=== PATIENT | female | born 1980 | race Caucasian/White ===

== ENCOUNTER → 2017-04-14 | Outpatient (CLI) | payer BC | END | disposition home or self-care (01) | LOC: C.PAPS 13:41 | PROVIDERS: ATTEND Obstetrics & Gynecology | DX: O09.511 Supervision of elderly primigravida, first trimester (principal) ==

== ENCOUNTER → 2017-04-14 | Outpatient (CLI) | payer BC ==
[2017-04-14 14:36] LABS: URINE APPEARANCE CLEAR (CLEAR); URINE BILIRUBIN NEG (NEG); URINE COLOR DK YELLOW; URINE NITRITE NEG (NEG); URINE SPECIFIC GRAVITY 1.028 (1.000-1.030); UROBILINOGEN NEG (NEG)
[2017-04-14 14:40] LABS: MANUAL MICROSCOPIC REQUIRED? NO; REVIEW REQ? NO
[2017-04-17 02:55] LABS: CHLAMYDIA TRACH RNA*** NOT DETECTED (NOT DETECTED); GC (NEIS GONORRHOEAE)RNA** NOT DETECTED (NOT DETECTED)
== END | disposition home or self-care (01) ==
LOC: C.LABSPEC 14:08
PROVIDERS: ATTEND Obstetrics & Gynecology
DX: Z33.1 Pregnant state, incidental (principal)

== ENCOUNTER → 2017-11-17 | Outpatient (CLI) | payer OTHER ==
[~2017-11-17] MED LIST: HMLI7525 SC; INSPMPHMLG SC; INSPMPRGR SC; PRENTAB26 PO
[2017-11-17 16:41] LABS: HEMATOCRIT 36.6 % (37-47); HEMOGLOBIN 12.1 g/dL (12.0-16.0); MEAN CELL VOLUME 82.2 fL (80-100); MEAN CORPUSCULAR HEMOGLOBIN 27.2 pg (25-34); MEAN CORPUSCULAR HGB CONC 33.1 g/dl (32-36); PLATELET COUNT 308 K/uL (130-400); RED CELL DISTRIBUTION WIDTH CV 15.3 % (11.5-14.5); RED CELL DISTRIBUTION WIDTH SD 45.7 fL (36.4-46.3); WHITE BLOOD COUNT 9.02 K/uL (4.8-10.8)
[2017-11-17 17:10] LABS: ALBUMIN 2.5 gm/dl (3.4-5.0); ALT/SGPT 12 U/L (12-78); AST/SGOT 13 U/L (15-37); BLOOD UREA NITROGEN 12 mg/dl (7-18); CALCIUM 8.9 mg/dl (8.5-10.1); CARBON DIOXIDE 24 mmol/L (21-32); GLUCOSE 64 mg/dl (70-99); POTASSIUM 3.8 mmol/L (3.5-5.1); SODIUM 137 mmol/L (136-145)
[2017-11-17 17:12] LABS: ALKALINE PHOSPHATASE 191 U/L (45-117); TOTAL PROTEIN 6.9 gm/dl (6.4-8.2)
== END | disposition home or self-care (01) ==
LOC: C.LAB1850 15:49
PROVIDERS: ATTEND Obstetrics & Gynecology
DX: O16.3 Unspecified maternal hypertension, third trimester (principal)

== ENCOUNTER 2017-11-19 19:53 | Outpatient (CLI) | payer OTHER ==
[~2017-11-19] VITALS: Ht 165.1 cm; Wt 114.1 kg
[2017-11-19 20:00] VITALS: Ht 165.1 cm; Wt 114.1 kg
[2017-11-19] MEDS ORDERED: HMLI7525 SC (20:12)
[2017-11-19] MEDS ORDERED: INSPMPRGR SC (20:12)
[2017-11-19] MEDS ORDERED: PRENTAB26 PO (20:12)
[2017-11-20] MEDS ORDERED: HMLI7525 SC (09:38)
[2017-11-20] MEDS ORDERED: INSPMPHMLG SC (09:41)
== END 2017-11-19 20:35 | disposition home or self-care (01) ==
LOC: C.OPB 19:53 → C.LD 19:53 → C.OPB 20:35
PROVIDERS: ATTEND Obstetrics & Gynecology
DX: O34.43 Maternal care for other abnormalities of cervix, third trimester (principal); Z3A.00 Weeks of gestation of pregnancy not specified

== ENCOUNTER 2017-11-20 07:41 | Inpatient (IN) | payer OTHER ==
[~2017-11-20] VITALS: Ht 165.1 cm; Wt 114.1 kg
[~2017-11-20 07:41] MED LIST changes: -INSPMPHMLG SC
[2017-11-20] MEDS ORDERED: LACTATED RINGER'S 1000ML 500 ML IV PRN ×2 (08:43→19:20)
[2017-11-20] MEDS ORDERED: LACTATED RINGER'S 1000ML 1,000 ML IV PRN (08:43)
[2017-11-20] MEDS ORDERED: PENICILLIN G POTASSIUM IV 6 MU in DEXTROSE 5% 250ML 250 ML IV ONE (09:15)
[2017-11-20 09:16] LABS: HEMATOCRIT 35.8 % (37-47); MEAN CELL VOLUME 82.1 fL (80-100); MEAN CORPUSCULAR HEMOGLOBIN 27.5 pg (25-34); MEAN CORPUSCULAR HGB CONC 33.5 g/dl (32-36); MEAN PLATELET VOLUME 9.8 fL (7.4-10.4); PLATELET COUNT 299 K/uL (130-400); RED CELL DISTRIBUTION WIDTH CV 15.4 % (11.5-14.5); RED CELL DISTRIBUTION WIDTH SD 45.6 fL (36.4-46.3); WHITE BLOOD COUNT 11.88 K/uL (4.8-10.8)
[2017-11-20] MEDS: OXYTOCIN 30 UNITS/500ML NSS IV PRN (09:21)
[2017-11-20] MEDS: LACTATED RINGER'S 1000ML 1,000 ML IV SCH ×3 (09:28→21:42)
[2017-11-20 09:37] VITALS: Ht 165.1 cm; Wt 114.1 kg
[2017-11-20] MEDS ORDERED: HMLI7525 SC (09:38)
[2017-11-20] MEDS ORDERED: INSPMPHMLG SC (09:41)
[2017-11-20] MEDS: PENICILLIN G POTASSIUM IV 3 MU in DEXTROSE 5% 100ML 100 ML IV PRN ×3 (13:34→21:41)
[2017-11-20] MEDS ORDERED: BUPIVACAINE 0.25% 30 ML VIAL ONE (16:15)
[2017-11-20] MEDS ORDERED: EpHEDrine SULFATE INJ 50 MG/ML AMP ONE (16:15)
[2017-11-20] MEDS ORDERED: FENTANYL 2MCG/ML ROPIV 1.25MG/ML 100ML BAG EPI ONE (16:16)
[2017-11-20] MEDS ORDERED: FENTANYL CITRATE INJ 50 MCG/1 ML 2 ML VIAL ONE (16:16)
[2017-11-20 18:08] LABS: ALBUMIN 2.5 gm/dl (3.4-5.0); CALCIUM 8.8 mg/dl (8.5-10.1); CREATININE 0.62 mg/dl (0.60-1.20); POTASSIUM 3.5 mmol/L (3.5-5.1)
[2017-11-20 18:11] LABS: TOTAL PROTEIN 6.8 gm/dl (6.4-8.2)
[2017-11-20] MEDS ORDERED: NALOXONE HCL INJ 1 MG in SODIUM CHLORIDE 0.9% 1000ML 1,000 ML IV PRN (19:20)
[2017-11-20] MEDS ORDERED: NALOXONE HCL INJ 0.4 MG/1 ML VIAL/CARP IV PRN (19:30)
[2017-11-20] MEDS ORDERED: EpHEDrine SULFATE INJ 50 MG/ML AMP IV PRN (19:30)
[2017-11-20] MEDS ORDERED: NALBUPHINE HCL INJ 10 MG/ML AMP IV PRN (19:30)
[2017-11-20] MEDS ORDERED: ONDANSETRON INJ 2 MG/ML 2 ML VIAL IV PRN (19:30)
[2017-11-20] MEDS ORDERED: DiphenhydrAMINE HCL 50 MG/ML VIAL IV PRN (19:30)
[2017-11-21] VITALS (9 sets, daily range): BP systolic 100–147; BP diastolic 57–96; PULSE 86–108; TEMP 36.4–36.9; O2SAT 96–100
[2017-11-21] MEDS: FENTANYL 2MCG/ML ROPIV 1.25MG/ML 100ML BAG EPI PRN ×3 (01:16→07:06)
[2017-11-21] MEDS: PENICILLIN G POTASSIUM IV 3 MU in DEXTROSE 5% 100ML 100 ML IV PRN ×2 (01:54→06:01)
[2017-11-21] MEDS ORDERED: ACETAMINOPHEN 325 MG TAB ONE (02:32)
[2017-11-21] MEDS ORDERED: ACETAMINOPHEN 325 MG TAB PO STA (02:44)
[2017-11-21 09:22] LABS: HEMATOCRIT 32.1 % (37-47); HEMOGLOBIN 10.7 g/dL (12.0-16.0); MEAN CELL VOLUME 81.9 fL (80-100); MEAN CORPUSCULAR HEMOGLOBIN 27.3 pg (25-34); MEAN PLATELET VOLUME 9.6 fL (7.4-10.4); PLATELET COUNT 245 K/uL (130-400); RED CELL DISTRIBUTION WIDTH CV 15.7 % (11.5-14.5); RED CELL DISTRIBUTION WIDTH SD 46.6 fL (36.4-46.3); WHITE BLOOD COUNT 17.57 K/uL (4.8-10.8)
[2017-11-21 09:33] LABS: MEAN CORPUSCULAR HGB CONC 33.3 g/dl (32-36)
[2017-11-21] MEDS: OXYTOCIN 30 UNITS/500ML NSS IV PRN ×2 (09:56→10:09)
[2017-11-21] MEDS ORDERED: HYDROCORTISONE ACETATE 25 MG SUPP PR PRN (10:15)
[2017-11-21] MEDS ORDERED: BENZOCAINE 20% AER SPR 82.5 GM CAN EXT PRN (10:15)
[2017-11-21] MEDS ORDERED: LANOLIN OINT EXT PRN (10:15)
[2017-11-21] MEDS ORDERED: SUPERCREAM 0.870 % 15GM JAR EXT PRN (10:15)
[2017-11-21] MEDS ORDERED: OXYTOCIN 30 UNITS/500ML NSS IV PRN (10:15)
[2017-11-21] MEDS ORDERED: OXYCODONE/ACETAMINOPHEN 5-325 TAB PO PRN (10:15)
[2017-11-21] MEDS ORDERED: ACETAMINOPHEN 325 MG TAB PO PRN (10:15)
[2017-11-21] MEDS ORDERED: OXYTOCIN INJ 10 UNITS/ML VIAL IM ONE (10:15)
--- NOTE | 2017-11-21 12:47 | DELIVERY SUMMARY ---
DATE OF OPERATION: 11/21/2017 PRE-DELIVERY DIAGNOSES: 1. A 37-year-old , 40 weeks 1 day. 2. GDMA2. 3. Group B strep positive. 4. Gestational hypertension. POST-DELIVERY DIAGNOSES: Same plus hemorrhage due to multiple vaginal lacerations. PROCEDURES: Spontaneous vaginal delivery and repair of second degree perineal laceration and suburethral laceration and left vaginal wall laceration and multiple superficial lacerations. DESCRIPTION OF DELIVERY: The patient was induced due to gestational diabetes on insulin and had labored overnight with the aid of Pitocin. She progressed to complete with an epidural anesthesia and began to push. She pushed for approximately 1 hour and vaginally delivered a viable male from the cephalic presentation. The head delivered in the left occiput anterior position with a compound hand that delivered at the same time as the head. The compound hand was the left arm, the posterior arm. The entire left arm was then delivered and then the anterior shoulder was delivered followed by the body. The baby was placed on the mother's abdomen. The cord was doubly clamped and cut. Spontaneous cry was heard. Cord segment was sent for cord gasses. Placenta was then delivered spontaneously intact with a 3-vessel cord. The uterus and vagina were swept of all clots and debris. Pitocin was given and the uterus became firm. The uterus was firm throughout the extensive repair. The cervix, vagina, and perineum were inspected and a second-degree perineal laceration was noted as well as a suburethral laceration and a left vaginal laceration. In addition to these, there were multiple small superficial lacerations, all of which were actively bleeding. First, the perineal laceration was repaired in the standard fashion because there were active pumping arteries bleeding. Rectal exam revealed no entry of the laceration to the rectum as well as an intact anal sphincter. Two wfubqf-gl-xgnun stitches were used to reapproximate the tissue just around the anal sphincter to give this area a little bit more support and the remaining repair was performed in standard fashion. Attention was turned to the urethra. A Moralez catheter was placed to ensure no entry of sutures into the urethra. Multiple bzqbyw-rl-rtipu stitches were placed in the suburethral area to reapproximate the tissue. This was difficult throughout to repair as each time a stitch was placed, the tissue shredded and all edges continued bleeding. During this repair, I asked for a stat CBC to be drawn to assess the patient's current hemodynamic status. Her vitals were stable. The left vaginal wall tear was reapproximated with multiple bbluah-lf-kztws sutures of 3-0 Vicryl. At this time, there were many small superficial lacerations throughout the vagina that were all bleeding. After thorough examination using 2 assistants with retractors to get good visualization of the entire cervix and vagina, I did not see any additional pumping bleeding; however, multiple spots of oozing blood from both the suburethral repair and the left vaginal laceration. More tvohce-lh-kdmpf sutures were used at both of these locations throughout and the urine in the Moralez catheter drainage tube was cleared. All stitches were far from the location of the Moralez catheter. Additional jddrib-vd-qtxjw sutures of 4-0 Vicryl were used in the vagina at every location, where I found an actively bleeding mucosal edge. Sharron hemostatic agent was used in an attempt to get these edges to stop oozing. Because of the patient's drop in hemoglobin from 12 to 10 from admission to the time of delivery and estimated blood loss of approximately 500 at the time of delivery and initial repair plus weighing of Latex sponges approximately 450 mL of blood loss, totaling approximately 1000 mL of blood loss, I elected to transfuse the patient with 1 unit of packed red cells and 1 unit of FFP because of the multiple areas of oozing bleeding in the vagina. After application of Sharron and pressure applied to the vagina with my fingers inside the Latex sponge, the entire vagina appeared hemostatic. At this time, I was notified that the packed red cells were on the way and the FFP was being defrosted by the blood bank. The patient was awake and taking throughout and vitals were normal and the patient appeared hemodynamically stable. Her bleeding at this time was stopped. Total estimated blood loss approximately 1000 mL throughout the delivery and repair. FINDINGS: Viable male . Apgars 8 and 9. Weight pending. Please nursery records. The patient and the baby recovered in stable and good condition in the room. I attest to the content of the Intraoperative Record and any orders documented therein. Any exception s are noted below.
[2017-11-21] MEDS ORDERED: DiphenhydrAMINE HCL 50 MG/ML VIAL IV STA (12:49)
[2017-11-21] MEDS ORDERED: DiphenhydrAMINE HCL 50 MG/ML VIAL ONE (12:51)
[2017-11-21 14:12] LABS: HEMATOCRIT 30.5 % (37-47); HEMOGLOBIN 10.2 g/dL (12.0-16.0); MEAN CELL VOLUME 81.8 fL (80-100); MEAN CORPUSCULAR HEMOGLOBIN 27.3 pg (25-34); MEAN CORPUSCULAR HGB CONC 33.4 g/dl (32-36); MEAN PLATELET VOLUME 9.8 fL (7.4-10.4); PLATELET COUNT 237 K/uL (130-400); RED CELL DISTRIBUTION WIDTH CV 15.4 % (11.5-14.5); RED CELL DISTRIBUTION WIDTH SD 45.2 fL (36.4-46.3); WHITE BLOOD COUNT 19.52 K/uL (4.8-10.8)
[2017-11-21] MEDS: IBUPROFEN 600 MG TAB PO PRN ×2 (14:26→22:38)
[2017-11-21 15:03] LABS: PTT PATIENT 29.1 SECONDS (21.0-31.0)
--- NOTE | 2017-11-21 16:37 | Anesthesia Procedure Note ---
Anesthesia Epidural Removal Nt Date & Time Nov 21, 2017 at 16:37 Vital Signs Pain Intensity: 1.0 Vital Signs Past 12 Hours Date Time Temp Pulse Resp B/P (MAP) Pulse Ox O2 Delivery O2 Flow Rate FiO2 11/21/17 12:45 36.7 93 20 147/94 100 11/21/17 12:30 36.6 87 20 130/73 11/21/17 12:15 36.4 93 18 127/71 11/21/17 11:30 36.5 95 20 140/87 11/21/17 11:00 36.6 103 20 140/69 11/21/17 10:43 36.8 108 20 108/57 Notes Mental Status: alert / awake / arousable, participated in evaluation Nausea / Vomiting: adequately controlled Pain: adequately controlled Airway Patency, RR, SpO2: stable & adequate BP & HR: stable & adequate Hydration State: stable & adequate Neuraxial Anesthesia: was administered, sensory block is resolving Anesthetic Complications: no major complications apparent, pt satisfied with anesthetic care Epidural: removed without complications, with tip intact
[2017-11-21 20:25] LABS: HEMATOCRIT 25.4 % (37-47); HEMOGLOBIN 8.4 g/dL (12.0-16.0)
[2017-11-21] MEDS: DOCUSATE SODIUM 100 MG CAP PO SCH (20:35)
[2017-11-22 03:00] VITALS: BP 122/78; PULSE 86; TEMP 36.6; O2SAT 97
[2017-11-22] MEDS: IBUPROFEN 600 MG TAB PO PRN ×4 (03:17→21:32)
[2017-11-22 06:34] LABS: HEMATOCRIT 25.5 % (37-47); HEMOGLOBIN 8.4 g/dL (12.0-16.0)
--- NOTE | 2017-11-22 07:34 | Progress Note ---
Subjective Nov 22, 2017. Subjective conversation w/ patient, physical exam Ambulation: ambulating normally Voiding: christie catheter in place (to be removed this am) Passing Gas: Yes Diet Tolerance: Regular Diet Lochia: Small Feeding Type: Breast Feeding Pain: well controlled Comment: seen and assessed at bedside; no acute events overnight Review of Systems Constitutional: No fever, No chills Respiratory: No cough, No shortness of breath Cardiac: + edema, No chest pain Abdomen: No nausea, No vomiting no headaches or calf pain Objective Vital Signs Date Time Temp Pulse Resp B/P (MAP) Pulse Ox O2 Delivery O2 Flow Rate FiO2 11/22/17 03:00 36.6 86 20 122/78 (93) 97 Room Air 11/21/17 23:30 Room Air 11/21/17 23:30 36.9 100 20 111/75 (87) Room Air 11/21/17 20:20 36.7 91 18 100/66 (77) 96 Room Air 11/21/17 17:15 36.6 86 18 130/96 (107) 97 Room Air 11/21/17 17:15 Room Air 11/21/17 12:45 36.7 93 20 147/94 100 11/21/17 12:30 36.6 87 20 130/73 11/21/17 12:15 36.4 93 18 127/71 11/21/17 11:30 36.5 95 20 140/87 11/21/17 11:00 36.6 103 20 140/69 11/21/17 10:43 36.8 108 20 108/57 Physical Exam General Appearance: WELL-APPEARING, WD/WN, NO APPARENT DISTRESS Respiratory/Chest: chest non-tender, lungs clear, normal breath sounds Cardiovascular: regular rate, rhythm, no murmur Abdomen: normal bowel sounds, non tender, soft Fundus: Firm, Non-Tender, Relation to Umbilicus (3 below) Extremities: normal range of motion, non-tender, normal inspection, no calf tenderness, + pedal edema (1 plus bilaterally) Laboratory Results Last 24 Hours Test 11/21/17 07:08 11/21/17 09:14 11/21/17 13:26 11/21/17 13:56 Bedside Glucose 88 mg/dl White Blood Count 17.57 K/uL 19.52 K/uL Red Blood Count 3.92 M/uL 3.73 M/uL Hemoglobin 10.7 g/dL 10.2 g/dL Hematocrit 32.1 % 30.5 % Mean Corpuscular Volume 81.9 fL 81.8 fL Mean Corpuscular Hemoglobin 27.3 pg 27.3 pg Mean Corpuscular Hemoglobin Concent 33.3 g/dl 33.4 g/dl RDW Standard Deviation 46.6 fL 45.2 fL RDW Coefficient of Variation 15.7 % 15.4 % Platelet Count 245 K/uL 237 K/uL Mean Platelet Volume 9.6 fL 9.8 fL Urine Occult Blood 2+ Urine RBC (Auto) 0-4 /hpf Prothrombin Time 10.0 SECONDS Prothromb Time International Ratio 1.0 Activated Partial Thromboplast Time 29.1 SECONDS Partial Thromboplastin Ratio 1.1 Fibrinogen 473 mg/dl Fibrin Degradation Products 10-40 mcg/ml Test 11/21/17 20:07 11/22/17 06:18 Hemoglobin 8.4 g/dL 8.4 g/dL Hematocrit 25.4 % 25.5 % Medications Current Inpatient Medications Medications (Trade) Dose Ordered Sig/Eirc Route Start Time Stop Time Status Last Admin Dose Admin Penicillin G Potassium 3 mu/ Dextrose 106 ml @ 100 mls/hr Q4H PRN IV 11/20/17 08:45 11/22/17 08:44 11/21/17 06:01 100 MLS/HR Lactated Ringer's 1,000 ml @ 125 mls/hr Q8H IV 11/20/17 08:43 11/22/17 08:42 11/20/17 21:42 125 MLS/HR Lactated Ringer's 1,000 ml @ 999 mls/hr Q1H1M PRN IV 11/20/17 08:43 12/20/17 08:42 11/20/17 16:12 999 MLS/HR Oxytocin (Pitocin IV) 30 units UD PRN IV 11/20/17 08:45 12/20/17 08:44 11/21/17 10:09 30 UNITS Lactated Ringer's 500 ml @ 999 mls/hr Q31M PRN IV 11/20/17 08:43 12/20/17 08:42 Oxytocin (Pitocin IV) 30 units UD PRN IV 11/21/17 10:15 12/21/17 10:14 Benzocaine (Dermoplast Aero Spr) 1 appln PRN PRN EXT 11/21/17 10:15 12/21/17 10:14 11/21/17 22:35 82.5 APPLN Cocaine HCl (Supercream 0.870% Cr) BID PRN EXT 11/21/17 10:15 12/05/17 10:14 11/21/17 23:24 15 GM Hydrocortisone Acetate (Anusol Hc Supp) 25 mg BID PRN IA 11/21/17 10:15 12/21/17 10:14 Lanolin (Lanolin Oint) PRN PRN EXT 11/21/17 10:15 12/21/17 10:14 Prenat Multivit/ Supervisor Paint Roller Covers/Iron/Folic Ac ( Vitamin Tab) 1 tab DAILY PO 11/22/17 08:00 12/22/17 07:59 Ibuprofen (Motrin Tab) 600 mg Q4H PRN PO 11/21/17 10:15 12/21/17 10:14 11/22/17 03:17 600 MG Acetaminophen (Tylenol Tab) 650 mg Q6H PRN PO 11/21/17 10:15 12/21/17 10:14 Oxycodone/ Acetaminophen (Percocet 5-325mg Tab) 1 tab Q4H PRN PO 11/21/17 10:15 12/05/17 10:14 Docusate Sodium (coLACE CAP) 100 mg BID PO 11/21/17 20:00 12/21/17 19:59 11/21/17 20:35 100 MG Ferrous Sulfate (Feosol Tab) 325 mg DAILY PO 11/22/17 08:00 12/22/17 07:59 Assessment and Plan Post- Day#: 1 Continue Routine Care: 37yo F PPD 1 s/p Pt doing well clinically Continue routine care Encourage ambulation and breast feeding, first time mom education on Home tomorrow Resident Physician Supervision Note: I was present with Dr. Hurt during the history and exam. I discussed the case with the resident and agree with the findings and plan as documented in the note. Any exceptions or clarifications are listed here: PPD#1 doing well. Patient had hemorrhage due to multiple bleeding lacerations at time of delivery yesterday. Rec'd 1u PRBC, 1u FFP after delivery. After infusion of FFP, patient developed hives around neck/face - no difficulty breathing. Gave IV benadryl, symptoms resolved and have not returned. Minimal vaginal bleeding at this time. Hgb stable at 8.4. (Both yesterday evening and this morning). Vitals stable, feeling well. Documented By: Jacque Norris Resident Tracking Resident Involvement: Resident Care Provided Care Provided: OB Delivery
[2017-11-22 07:36] VITALS: BP 134/86; PULSE 107; TEMP 36.6
--- NOTE | 2017-11-22 07:45 | Discharge Instructions ---
Discharge Instructions Date of Service Nov 22, 2017. Admission Reason for Admission: Induction Discharge Discharge Diagnosis / Problem: s/p Discharge Goals Goal(s): Routine recovery after delivery Medications Continue Dispensed Medications: supercream, dermaplast, tucks, lansinoh Activity Recommendations Activity Limitations: per Instructions/Follow-up section . Instructions / Follow-Up Instructions / Follow-Up ACTIVITY RECOMMENDATIONS: * Gradual return to full activity over the next 2-3 weeks. * No lifting - nothing heavier than baby over the next 2-3 weeks. * Do not engage in vigorous exercise, sexual activity or sports until cleared by your physician. * Do not drive or operate any motorized equipment until cleared by your physician. * You may shower/bathe daily. MEDICATIONS: For discomfort or pain, you may use Acetaminophen (Tylenol), Ibuprofen (Advil), or Naproxen (Aleve) following the package directions. For constipation you may use Colace following the package directions. BREAST CARE: If you are not breast feeding: * Wear a supportive bra 24 hours a day for one to two weeks. * Avoid stimulating your breasts and nipples as much as possible during the first few weeks after delivery. * When taking a shower, have the warm water hit your back, not breasts. * When your breasts feel full, apply ice packs. Usually three to four times a day helps ease the discomfort. * Take a mild pain medication (Tylenol / Motrin) when you are uncomfortable. If breast feeding: * Use breast milk to lubricate nipples. Lansinoh cream may be used for sore nipples. You do not need to remove cream prior to breast feeding. If using a different brand of cream, check the label for directions regarding removal of cream prior to nursing. * Wear a supportive bra. * If having problems with breasts or breast feeding, call a databases computer consultant or your health care provider. EPISIOTOMY CARE: After delivery, if you have an episiotomy (stitches), the following steps will ease discomfort and aid healing. * For the first 24 hours after delivery, place ice packs next to your episiotomy to help reduce swelling. * After the first 24 hour-period, sitz baths, either portable or in the tub, are suggested. A shower with a shower arm sprayed over the episiotomy may be comforting. * Emilie care should be done after each voiding and bowel movement. Squirt warm water from a plastic bottle over the perineum (region of the body between the anus and urinary opening) and pat dry. * Use Dermoplast to ease discomfort. Shake container. [place] directly over the episiotomy. Place a Tucks on a clean sanitary pad next to your episiotomy. SPECIAL CARE INSTRUCTIONS: When you are discharged from the hospital, it is important for you to follow the instructions listed below: * During the first week at home, you should be able to care for yourself and your baby. In addition, the usual light household activities are encouraged. * Limit your activities to the way you feel. Do not try to clean the house or move furniture. Be sensible. * If you actively engage in sports and have done so up until the time of your delivery, you may resume these activities as soon as you feel able. This may take up to one month or even longer. Use good judgment. * Continue to take your vitamins for at least six weeks after the of your baby. * Your diet need not be limited unless you were on a special diet before your delivery. Breast-feeding mothers need around 2500 calories per day and at least 64-80 ounces of fluid per day (8 to 10 glasses). * You should eat foods from the four major food groups. Crash diets or fad diets are to be avoided. Eating lean meats, fresh fruits and vegetables, low-fat dairy products, high fiber foods and a regular exercise program, will help you get back to your pre- weight without putting your health at risk. * Constipation is sometimes a problem after delivery. Take a mild laxative as needed. If breast feeding, Milk of Magnesia is acceptable to use. You may use a suppository or Fleets enema if no episiotomy. * A daily shower or tub bath is suggested. Be sure to thoroughly and gently dry the perineum. * A bloody vaginal discharge will usually continue until around four weeks post . A small amount of bleeding may continue for as long as six weeks. Vaginal discharge changes from the bright red bleeding after delivery to pink then brownish and finally yellowish-pink before becoming white and disappearing. * Bleeding may increase with activity. Your first period may come in 4-8 weeks. If you are breast feeding, your period may be delayed even longer. * [place] (sex) can begin whenever both you and your partner feel comfortable and do not have any form of genital infection. It is recommended that you wait at least six weeks for internal and external healing to occur. If you have questions, please talk to your health care practitioner. A condom should be used to prevent infection and . * Foreplay, gentle intercourse and lubrication is very important the first several times to prevent pain. A water-based lubricant such as K-Y jelly or Astroglide may be used. * If you have RH negative blood and your baby is RH positive, you will receive RHOGAM by injection prior to discharge. The nurse will give you a card to keep with you that has the date and place that you received RHOGAM after delivery. * During your care, you had a Rubella screen done to check for the presence of rubella antibodies in your blood. If your test was negative, you will receive a Rubella vaccine prior to discharge. This vaccine may cause a fever, soreness at the injection site and flu-like symptoms. If these symptoms persist, notify your health care practitioner. is not advised for one month after a Rubella vaccine. * Verbalizes understanding of car seat law as reviewed with patient nursing. * Car Seat hand-out given and reviewed with patient by nursing. * Shaken baby information reviewed with patient by nursing. Call you doctor if: * Heavy bleeding (saturating several pads an hour) or passing clots the size of your fist. * A fever >101 degrees F (38.3 degrees C) on two occasions four hours apart and /or chills. * Unusual pain in the pelvic or vaginal areas. * "Baby Blues" lasting longer than two weeks. If you have any questions or concerns, call your health care practitioner at . FOLLOW UP VISIT: * Please call the office at to schedule a 6 week examination. It is important you keep this appointment. It is important for you to make arrangements for either yearly or twice yearly check-ups thereafter. Current Hospital Diet Patient's current hospital diet: Regular OB Diet Discharge Diet Recommended Diet: Regular OB Diet Pending Studies Studies pending at discharge: no Medical Emergencies . Who to Call and When: Medical Emergencies: If at any time you feel your situation is an emergency, please call [phone] immediately. . Non-Emergent Contact Non-Emergency issues call your: Screw Machine Adjuster Automatic . . "Provider Documentation" section prepared by Nicki Hurt. .
[2017-11-22] MEDS: DOCUSATE SODIUM 100 MG CAP PO SCH ×2 (08:41→20:10)
[2017-11-22] MEDS: PRENATAL VITAMIN TAB PO SCH (08:41)
[2017-11-22] MEDS: FERROUS SULFATE 325 MG TAB PO SCH (08:41)
[2017-11-22 11:25] VITALS: BP 130/86; PULSE 91; TEMP 36.6; O2SAT 98
[2017-11-22 15:30] VITALS: BP 142/84; PULSE 96; TEMP 36.7
[2017-11-22 23:35] VITALS: BP 132/79; PULSE 92; TEMP 36.6
[2017-11-23] MEDS: IBUPROFEN 600 MG TAB PO PRN ×2 (04:31→08:52)
[2017-11-23 06:41] LABS: HEMATOCRIT 25.2 % (37-47); HEMOGLOBIN 8.2 g/dL (12.0-16.0); MEAN CELL VOLUME 83.4 fL (80-100); MEAN CORPUSCULAR HEMOGLOBIN 27.2 pg (25-34); MEAN CORPUSCULAR HGB CONC 32.5 g/dl (32-36); MEAN PLATELET VOLUME 9.4 fL (7.4-10.4); PLATELET COUNT 274 K/uL (130-400); RED CELL DISTRIBUTION WIDTH CV 15.9 % (11.5-14.5); RED CELL DISTRIBUTION WIDTH SD 48.4 fL (36.4-46.3); WHITE BLOOD COUNT 14.47 K/uL (4.8-10.8)
--- NOTE | 2017-11-23 06:54 | Progress Note ---
Subjective Nov 23, 2017. Subjective conversation w/ patient, physical exam Ambulation: ambulating normally Voiding: no voiding problems Passing Gas: Yes Diet Tolerance: Regular Diet Lochia: Moderate Feeding Type: Breast Feeding Review of Systems Constitutional: No fever, No chills Respiratory: No cough Cardiac: No chest pain Abdomen: No nausea, No vomiting Objective Vital Signs Date Time Temp Pulse Resp B/P (MAP) Pulse Ox O2 Delivery O2 Flow Rate FiO2 11/22/17 23:35 36.6 92 18 132/79 (96) Room Air 11/22/17 23:35 Room Air 11/22/17 15:30 36.7 96 20 142/84 (103) Room Air 11/22/17 15:30 Room Air 11/22/17 11:25 36.6 91 16 130/86 (101) 98 Room Air 11/22/17 07:50 Room Air 11/22/17 07:36 36.6 107 20 134/86 (102) Room Air Physical Exam General Appearance: WELL-APPEARING, NO APPARENT DISTRESS Respiratory/Chest: no respiratory distress, no accessory muscle use Cardiovascular: no edema Abdomen: non tender, soft Fundus: Firm Extremities: no calf tenderness Laboratory Results Last 24 Hours Test 11/23/17 06:21 White Blood Count 14.47 K/uL Red Blood Count 3.02 M/uL Hemoglobin 8.2 g/dL Hematocrit 25.2 % Mean Corpuscular Volume 83.4 fL Mean Corpuscular Hemoglobin 27.2 pg Mean Corpuscular Hemoglobin Concent 32.5 g/dl RDW Standard Deviation 48.4 fL RDW Coefficient of Variation 15.9 % Platelet Count 274 K/uL Mean Platelet Volume 9.4 fL Assessment and Plan Post- Day#: 2 Continue Routine Care: D'/C instructions reviewed.
[2017-11-23 07:40] VITALS: BP 125/78; PULSE 87; TEMP 36.6; O2SAT 98
[2017-11-23] MEDS: PRENATAL VITAMIN TAB PO SCH (08:51)
[2017-11-23] MEDS: FERROUS SULFATE 325 MG TAB PO SCH (08:51)
[2017-11-23] MEDS: DOCUSATE SODIUM 100 MG CAP PO SCH (08:51)
[2017-11-23 13:30] VITALS: BP_DIAS 78; PULSE 87; TEMP 36.6
== END 2017-11-23 13:30 | disposition home or self-care (01) | DRG 774 ==
LOC: C.LD 07:41 → C.OBG 11-21 17:53
PROVIDERS: ADMIT Obstetrics & Gynecology; ATTEND Obstetrics & Gynecology
PROC: 0KQM0ZZ Repair Perineum Muscle, Open Approach (ICD-10-PCS; principal; 2017-11-21)
PROC: 10E0XZZ Delivery of Products of Conception, External Approach (ICD-10-PCS; principal; 2017-11-21)
PROC: 3E033VJ Introduction of Other Hormone into Peripheral Vein, Percutaneous Approach (ICD-10-PCS; principal; 2017-11-21)
DX: O24.424 Gestational diabetes mellitus in childbirth, insulin controlled (principal); O72.1 Other immediate postpartum hemorrhage; Z37.0 Single live birth; O32.6XX0 Maternal care for compound presentation, not applicable or unspecified; O70.1 Second degree perineal laceration during delivery; L50.0 Allergic urticaria; O99.73 Diseases of the skin and subcutaneous tissue complicating the puerperium; O13.4 Gestational [pregnancy-induced] hypertension without significant proteinuria, complicating childbirth; O9A.23 Injury, poisoning and certain other consequences of external causes complicating the puerperium; T45.8X5A Adverse effect of other primarily systemic and hematological agents, initial encounter; Z3A.40 40 weeks gestation of pregnancy; Z79.4 Long term (current) use of insulin; Z88.2 Allergy status to sulfonamides

== ENCOUNTER 2018-10-08 07:25 | Inpatient (IN) ==
[2018-10-08] MEDS ORDERED: OXYTOCIN 30 UNITS/500 ML BAG IV PRN ×3 (08:33→20:50)
[2018-10-08] MEDS ORDERED: LACTATED RINGER'S 1,000 ML IV PRN ×3 (08:33→16:27)
[2018-10-08 08:55] LABS: Hemoglobin 12.5 g/dL (12.0-16.0); Mean Corpuscular Volume 83.5 fL (80-100); Mean Platelet Volume 10.3 fL (7.4-10.4); Platelet Count 268 K/uL (130-400); RDW Coefficient of Variation 15.6 % (11.5-14.5); RDW Standard Deviation 46.9 fL (36.4-46.3); Red Blood Count 4.55 M/uL (4.2-5.4); White Blood Count 9.58 K/uL (4.8-10.8)
[2018-10-08] MEDS ORDERED: PENICILLIN G POTASSIUM 6 MU in DEXTROSE 5% 250 ML IV ONE (09:00)
[2018-10-08 09:15] LABS: Mean Corpuscular Hgb Conc 32.9 g/dL (32-36)
[2018-10-08] MEDS: LACTATED RINGER'S 1,000 ML IV SCH ×2 (09:28→16:23)
--- NOTE | 2018-10-08 09:55 | History & Physical Report ---
Date of Service October 08, 2018 Assessment & Plan (1) Gestational diabetes mellitus (GDM) requiring insulin: 38yo @ 39 12/06 here for IOL Moralez balloon placed without difficulty, will plan to start pitocin. Blood glucose checks Q2h, increase freq to Q1h when in active labor. Pen G for GBS+ History of Present Illness Chief Complaint: IOL Primary Care Provider: Karli Bradshaw PA-C 38yo @ 39 12/06 presents for IOL secondary to GDMA2. Prior delivery @ 40 1 was [id number] (10/2017). otherwise complicated by GBS+ and inconsistent lie. The baby was breech late in gestation. Today, she is feeling well without complaint. + movement. No vaginal bleeding, leaking of fluid, or contractions. Allergies Allergy/AdvReac Type Severity Reaction Status Date / Time shellfish derived Allergy Unknown HIVES Verified 11/20/17 09:47 Sulfa (Sulfonamide Allergy Unknown HIVES Verified 11/20/17 09:47 Antibiotics) Home Medications Home Medications Medication Instructions Recorded Confirmed Type Novolin N NPH U-100 Insulin 160 units SUBCUT HS 09/21/18 09/21/18 History Novolog U-100 Insulin aspart 50 ml SUBCUT WM 09/21/18 09/21/18 History acetaminophen 650 mg PO Q6 PRN 09/21/18 09/21/18 History vit [id number] 1 tab PO DAILY 09/21/18 09/21/18 History [ Vitamin] Patient History Medical History Asthma, exercise induced (~09/18/94) Surgical History Hx of breast reduction, elective (~08/17/03) Family History Father Colon cancer Social History marital status: Current Living Situation: Spouse Other Information That Helps Us Care for You: No Feels Safe at Home: Yes and No Is there a partner from a previous relationship who is making you feel unsafe now?: No Any Concerns about Your Family Situation : No Would You Like to Speak to Someone About Your Situation: No Safety Concerns: Feels Safe At This Time Smoking Status: Never smoker Hx Alcohol Use: No Hx Substance Use: No Preferred Language: [place] Communication Ability: Effective Review of Systems All systems reviewed & are unremarkable except as noted in HPI & below Physical Exam 2 Vital Signs (Past 24 Hours): Last Vital Signs Temp 36.7 C 10/08/18 07:44 Pulse 90 10/08/18 09:08 Resp 20 10/08/18 07:44 BP 134/93 10/08/18 09:08 Physical Exam: Gen: AAOx3 NAD CV: [id number] L: CTAB Abd: soft, gravid, NTTP Ext: 1+ edema SVE: /hi FHT: Cat 1, [place]co Q 2-3 Limited bedside ultrasound: Cephalic, adequate amniotic fluid, + movement and cardiac activity. Anterior placenta.
--- NOTE | 2018-10-08 12:29 | Obstetrical Progress Note ---
Date of Service October 08, 2018 Subjective Starting to feel increasing ctx. Moralez fell out. FHT Cat 1 [place] Q 1-2 SVE 4/50/not palpable. bulging membranes. Limited bedside ultrasound performed, still cephalic. Will continue pitocin to bring head down prior to AROM. Physical Exam 2 Vital Signs (Past 24 Hours): Last Vital Signs Temp 36.7 C 10/08/18 07:44 Pulse 90 10/08/18 12:07 Resp 20 10/08/18 07:44 BP 136/86 10/08/18 12:07
[2018-10-08] MEDS: PENICILLIN G POTASSIUM 3 MU in DEXTROSE 5% 100 ML IV PRN ×2 (13:39→17:39)
[2018-10-08] MEDS ORDERED: fentaNYL citrate 100 MCG/2 ML VIAL ONE (15:48)
[2018-10-08] MEDS ORDERED: BUPIVACAINE 0.25% 30 ML VIAL ONE (15:48)
[2018-10-08] MEDS ORDERED: ePHEDrine sulfate 50 MG/ML AMP ONE (15:48)
[2018-10-08] MEDS ORDERED: fentaNYL 2MCG/ML ROPIV 1.25MG/ML 100 ML BAG EPI ONE (15:49)
[2018-10-08] MEDS ORDERED: NALBUPHINE HCL INJ 10 MG/ML AMP IV PRN (16:27)
[2018-10-08] MEDS ORDERED: NALOXONE HCL 0.4 MG/1 ML VIAL/CARP IV PRN (16:27)
[2018-10-08] MEDS ORDERED: ePHEDrine sulfate 50 MG/ML AMP IV PRN (16:27)
[2018-10-08] MEDS ORDERED: fentaNYL 2MCG/ML ROPIV 1.25MG/ML 100 ML BAG EPI PRN (16:27)
[2018-10-08] MEDS ORDERED: NALOXONE HCL 1 MG in SODIUM CHLORIDE 0.9% 1000ML 1,000 ML IV PRN (16:27)
[2018-10-08] MEDS ORDERED: DiphenhydrAMINE HCL 50 MG/ML VIAL IV PRN (16:27)
--- NOTE | 2018-10-08 17:54 | Obstetrical Progress Note ---
Date of Service October 08, 2018 Subjective Comfortable with epidural. FHT Cat 1, [place] Q 3-4 AROM clear fluid, copious amounts. Continue to labor. Physical Exam 2 Vital Signs (Past 24 Hours): Last Vital Signs Temp 36.5 C 10/08/18 15:04 Pulse 99 H 10/08/18 17:49 Resp 20 10/08/18 17:15 BP 188/127 H 10/08/18 17:45 Pulse Ox 97 10/08/18 17:49
[2018-10-08] MEDS ORDERED: OXYCODONE/ACETAMINOPHEN 5mg/325mg TAB PO PRN (20:49)
[2018-10-08] MEDS ORDERED: HYDROCORTISONE ACETATE 25 MG SUPP PR PRN (20:50)
[2018-10-08] MEDS ORDERED: SUPERCREAM 0.870% 15 GM JAR EXT PRN (20:50)
[2018-10-08] MEDS ORDERED: BENZOCAINE 20% AER SPR 82.5 GM CAN EXT PRN (20:50)
[2018-10-08] MEDS ORDERED: DIPHTHERIA/TETANUS/PERTUSSIS 0.5 ML SYR/VIAL IM ONE (20:50)
[2018-10-08] MEDS ORDERED: BISACODYL 10 MG SUPP PR PRN (20:50)
[2018-10-08] MEDS ORDERED: ACETAMINOPHEN 325 MG TAB PO PRN (20:50)
--- NOTE | 2018-10-08 20:57 | Procedure Note ---
Vaginal Delivery Summary Date of Service October 08, 2018 Vaginal Delivery Summary Predelivery diagnoses: 38-year-old at 39 weeks 4 days, GDM A2, group B strep positive Postdelivery diagnoses: Same plus third-degree perineal laceration Procedure: Spontaneous vaginal delivery, repair of third-degree perineal laceration Complications: None Estimated blood loss: 300 mL Findings: Viable male , Apgars 8 and 9, weight 11 pounds 1 ounce Description of delivery: Patient progressed to complete with epidural anesthesia , she then began to push. After 3 pushes, she spontaneously vaginally delivered a viable male from the cephalic presentation. The head delivered in the right occiput anterior position. No nuchal cord was noted. Anterior shoulder delivered, followed by anterior arm, followed by posterior shoulder. the body followed. The baby was placed on mother's abdomen, spontaneous cry was heard. The cord was doubly clamped and cut, and cord blood was obtained. The placenta was delivered spontaneously intact with a three- vessel cord. The uterus and vagina were swept of all clots and debris. Pitocin was given and the uterus became firm. The cervix vagina and perineum were inspected, a partial third-degree perineal laceration was noted. A figure- of-eight stitch of 3-0 chromic suture was used to reapproximate the superior aspect of the anal sphincter muscle. The remainder of the anal sphincter muscle was intact. The remaining perineal laceration was then reapproximated using 3-0 Vicryl in standard fashion. An additional [id number] suture of 3 -0 Vicryl was used at the incision line to obtain excellent hemostasis. Sponge, instrument, needle counts were correct x2 at the conclusion of the delivery. Mother and baby are recovering in stable and good condition in the room.
[2018-10-08] MEDS: DOCUSATE SODIUM 100 MG CAP PO SCH (21:19)
--- NOTE | 2018-10-08 21:54 | Anesthesia Procedure Note ---
Date of Service October 08, 2018 Anesthesia Post Epidural Note Vital Signs Vital Signs: Temp Pulse Resp BP Pulse Ox 10/08/18 21:45 107 H 141/66 H 10/08/18 21:30 100 H 145/66 H 10/08/18 21:15 116 H 126/74 10/08/18 21:10 100 H 18 145/66 H 10/08/18 21:02 112 H 147/67 H 10/08/18 21:00 103 H 171/72 H 10/08/18 20:42 107 H 152/64 H 10/08/18 20:40 36.8 C 112 H 20 93 10/08/18 20:39 113 H 96 10/08/18 20:34 109 H 97 10/08/18 20:30 120 H 172/73 H 10/08/18 20:29 114 H 95 10/08/18 20:24 115 H 97 10/08/18 20:19 113 H 97 10/08/18 20:15 130 H 162/67 H 10/08/18 20:14 137 H 98 10/08/18 20:09 125 H 20 97 10/08/18 20:04 105 H 99 10/08/18 20:01 110 H 137/78 10/08/18 19:59 108 H 99 10/08/18 19:54 95 H 97 10/08/18 19:49 114 H 99 10/08/18 19:45 100 H 20 132/79 10/08/18 19:44 96 H 98 10/08/18 19:43 105 H 94 10/08/18 19:39 103 H 98 10/08/18 19:34 103 H 99 10/08/18 19:31 98 H 142/76 H 10/08/18 19:29 106 H 99 10/08/18 19:24 105 H 98 10/08/18 19:19 110 H 99 10/08/18 19:18 36.4 C L 18 10/08/18 19:15 110 H 20 131/83 10/08/18 19:14 106 H 98 10/08/18 19:11 117 H 91 10/08/18 19:09 103 H 98 10/08/18 19:04 103 H 97 10/08/18 19:01 107 H 129/73 10/08/18 18:59 109 H 97 10/08/18 18:54 108 H 96 10/08/18 18:49 102 H 97 10/08/18 18:45 20 10/08/18 18:44 94 H 136/73 96 10/08/18 18:39 93 H 97 10/08/18 18:34 90 98 10/08/18 18:30 86 132/73 10/08/18 18:29 88 96 10/08/18 18:24 92 H 97 10/08/18 18:19 98 H 96 10/08/18 18:15 98 H 20 144/84 H 10/08/18 18:14 98 H 98 10/08/18 18:09 99 H 98 10/08/18 18:04 97 H 98 10/08/18 18:00 20 10/08/18 17:59 98 H 147/72 H 98 10/08/18 17:57 95 H 159/71 H 10/08/18 17:54 95 H 97 10/08/18 17:49 99 H 97 10/08/18 17:46 36.9 C 10/08/18 17:45 106 H 20 188/127 H 10/08/18 17:44 112 H 97 10/08/18 17:39 95 H 97 10/08/18 17:34 96 H 97 10/08/18 17:30 93 H 20 135/83 10/08/18 17:29 100 H 98 10/08/18 17:24 103 H 97 10/08/18 17:19 91 H 97 10/08/18 17:15 92 H 20 139/71 10/08/18 17:14 94 H 97 10/08/18 17:09 96 H 97 10/08/18 17:04 96 H 97 10/08/18 17:00 20 10/08/18 16:59 102 H 128/77 96 10/08/18 16:54 105 H 97 10/08/18 16:49 96 H 96 10/08/18 16:46 20 10/08/18 16:44 98 H 133/71 98 10/08/18 16:39 96 H 97 10/08/18 16:37 117 H 135/86 10/08/18 16:35 20 10/08/18 16:34 103 H 98 10/08/18 16:33 97 H 142/83 H 10/08/18 16:29 103 H 98 10/08/18 16:27 100 H 123/68 10/08/18 16:25 99 H 127/69 10/08/18 16:24 100 H 97 10/08/18 16:23 94 H 132/72 10/08/18 16:21 103 H 20 138/76 10/08/18 16:19 95 H 132/63 97 10/08/18 16:17 96 H 152/73 H 10/08/18 16:15 111 H 119/66 10/08/18 16:14 113 H 98 10/08/18 16:09 107 H 98 10/08/18 15:04 36.5 C 98 H 20 151/80 H 10/08/18 14:24 103 H 140/91 10/08/18 13:44 100 H 134/90 10/08/18 12:56 93 H 149/85 H 10/08/18 12:07 36.7 C 90 20 136/86 10/08/18 11:27 80 139/71 10/08/18 10:45 95 H 132/92 10/08/18 09:08 90 134/93 10/08/18 07:44 36.7 C 90 20 164/83 H Pain Intensity Lower Abdomen: Pain Intensity: 0 Notes Mental Status: alert / awake / arousable and participated in evaluation Nausea / Vomiting: adequately controlled Pain: adequately controlled Airway Patency, RR, SpO2: stable & adequate BP & HR: stable & adequate Hydration State: stable & adequate Neuraxial Anesthesia: was administered and sensory block is resolving Anesthetic Complications: no major complications apparent and Pt Satisfied with anesthetic care Epidural: Removed without complications and With tip intact
[2018-10-08] MEDS: IBUPROFEN 600 MG TAB PO PRN (23:19)
[2018-10-09 00:19] LABS: Basophils # (auto) 0.02 K/uL (0-0.2); Basophils % (auto) 0.1 %; Eosinophils # (auto) 0.02 K/uL (0-0.5); Eosinophils % (auto) 0.1 %; Hematocrit (blood only) 35.5 % (37-47); Hemoglobin 11.7 g/dL (12.0-16.0); Immature Granulocytes # (auto) 0.04 K/uL (0.00-0.02); Immature Granulocytes % (auto) 0.3 %; Lymphocytes # (auto) 1.51 K/uL (1.2-3.4); Lymphocytes % (auto) 9.5 %; Mean Corpuscular Volume 83.9 fL (80-100); Mean Platelet Volume 10.3 fL (7.4-10.4); Monocytes # (auto) 0.69 K/uL (0.11-0.59); Monocytes % (auto) 4.3 %; Neutrophils # (auto) 13.59 K/uL (1.4-6.5); Neutrophils % (auto) 85.7 %; Platelet Count 281 K/uL (130-400); RDW Coefficient of Variation 15.7 % (11.5-14.5); RDW Standard Deviation 47.9 fL (36.4-46.3); Red Blood Count 4.23 M/uL (4.2-5.4); White Blood Count 15.87 K/uL (4.8-10.8)
[2018-10-09 00:41] LABS: Albumin Level 2.1 gm/dl (3.4-5.0); BUN Creatinine Ratio 13.5 (10-20); Calcium 8.5 mg/dl (8.5-10.1); Creatinine Clr Calc Pharmacy 132.9 ml/min; Est GFR (African American) 115.1; Est GFR (Non-African American) 99.3; Potassium 3.9 mmol/L (3.5-5.1)
[2018-10-09 00:44] LABS: Albumin Globulin Ratio 0.5 (0.9-2); Bilirubin,Total 0.2 mg/dl (0.2-1); Globulin 4.1 gm/dl (2.5-4.0); Total Protein 6.2 gm/dl (6.4-8.2)
--- NOTE | 2018-10-09 06:12 | Obstetrical Progress Note ---
Date of Service <Domingo Jordan MD - Last Filed: 10/09/18 06:11> October 09, 2018 Assessment & Plan <Domingo Jordan MD - Last Filed: 10/09/18 06:11> (1) (normal spontaneous vaginal delivery): Nadia Wilks is a 38yo who prsented at 39+4 for induction of labor now s/p over a 3rd degree lac PPD#1 - GBS positive, Blood type O+ - Feels well today. Eating well, voiding well, ambulating well. - Bottle feeding - Pain well controlled with ibuprofen 600mg Q4H PRN. - Routine care - After discharge will have [address] Norris. (2) with 39 completed weeks gestation: Subjective <Domingo Jordan MD - Last Filed: 10/09/18 06:11> Ambulation: ambulating normally Voiding: no voiding problems Passing Gas:: Yes Diet Tolerance:: regular diet Lochia:: Moderate Feeding Type:: bottle feeding Current Pain Level(1-10): 2 (improved with rx) Review of Systems Denies fever, chills, sweats Denies shortness of breath, difficulty breathing, chest pain, palpitations, chest pressure. Denies breast pain. Denies dysuria. Denies headache. Physical Exam <Domingo Jordan MD - Last Filed: 10/09/18 06:11> Vital Signs (Past 24 Hours) Last Vital Signs Temp 36.7 C 10/08/18 23:15 Pulse 83 10/09/18 04:25 Resp 16 10/09/18 04:25 BP 134/85 10/09/18 04:25 Pulse Ox 93 10/08/18 20:40 General: Alert, oriented. No acute distress. Cardiac: Regular rate and rhythm, no murmurs/rubs/gallops. Respiratory: Clear to auscultation anterior and posteriorly, no wheezes/rales/ rhonchi. No increased work of breathing. Symmetrical chest rise. No respiratory distress. Abdomen: Soft, nontender, nondistended. Bowel sounds present. Uterus: Uterine fundus firm, palpable at the level of the umbilicus. Lower Extremities: No lower extremity edema or swelling. No deep calf pain. Joanna's negative bilaterally. <Jacque Norris DO - Last Filed: 10/09/18 07:45> Co-Signing Physician Notes I have seen/examined patient. I have read above note performed by resident and I agree with above. Any changes/additions are as follows: PPD#1 doing well. Preeclampsia labs collected overnight because of BPs 140s/90s. Labs wnl. Anticipate DC home tomorrow. Jacque Norris DO [facility] Resident Activity Tracking <Domingo Jordan MD - Last Filed: 10/09/18 06:11> Resident Involvement: Resident Care Provided Care Provided: Adult Hospital Medicine
[2018-10-09 06:31] LABS: Hematocrit (blood only) 34.5 % (37-47); Hemoglobin 11.2 g/dL (12.0-16.0)
[2018-10-09] MEDS: DOCUSATE SODIUM 100 MG CAP PO SCH ×2 (08:19→21:59)
[2018-10-09] MEDS: PRENATAL VITAMIN 1 TAB PO SCH (08:19)
[2018-10-09] MEDS: IBUPROFEN 600 MG TAB PO PRN ×3 (08:19→22:28)
[2018-10-09] MEDS ORDERED: BISACODYL 5 MG TABEC PO SCH (20:00)
--- NOTE | 2018-10-10 06:18 | Obstetrical Progress Note ---
Date of Service <Domingo Jordan MD - Last Filed: 10/10/18 06:18> October 10, 2018 Assessment & Plan <Domingo Jordan MD - Last Filed: 10/10/18 06:18> (1) (normal spontaneous vaginal delivery): Nadia Wilks is a 38yo who prsented at 39+4 for induction of labor now s/p over a 3rd degree lac PPD#2 - GBS positive, Blood type O+ - Feels well today. Eating well, voiding well, ambulating well. - Bottle feeding, pumping for colostrum. Decreased milk production 2/2 hx of breast reduction surgery - Pain well controlled with ibuprofen 600mg Q4H PRN. - Routine care - After discharge will have [address] Norris. - Counseling on mastitis, bleeding, post- depression, vaginal care, sexual abstinence, and followup visit planning provided (2) with 39 completed weeks gestation: Subjective <Domingo Jordan MD - Last Filed: 10/10/18 06:18> Ambulation: ambulating normally Voiding: no voiding problems Passing Gas:: Yes Diet Tolerance:: regular diet Lochia:: Small Feeding Type:: bottle feeding (pumping for colostrum, difficulties with milk production 2/2 breast reduction surgery in the past) Review of Systems Denies fever, chills, sweats Denies shortness of breath, difficulty breathing, chest pain, palpitations, chest pressure. Denies breast pain. Denies dysuria. Denies headache. Physical Exam <Domingo Jordan MD - Last Filed: 10/10/18 06:18> Vital Signs (Past 24 Hours) Last Vital Signs Temp 36.4 C L 10/10/18 00:30 Pulse 86 10/10/18 00:30 Resp 18 10/10/18 00:30 BP 131/53 L 10/10/18 00:30 Pulse Ox 97 10/09/18 20:00 General: Alert, oriented. No acute distress. Cardiac: Regular rate and rhythm, no murmurs/rubs/gallops. Respiratory: Clear to auscultation anterior and posteriorly, no wheezes/rales/ rhonchi. No increased work of breathing. Symmetrical chest rise. No respiratory distress. Abdomen: Soft, nontender, nondistended. Bowel sounds present. Uterus: Uterine fundus firm, palpable 1-2cm below umbilicus. Lower Extremities: No lower extremity edema or swelling. No deep calf pain. Joanna's negative bilaterally. <Arabella Barros MD, FACOG - Last Filed: 10/10/18 06:30> Co-Signing Physician Notes Resident Physician Supervision Note: I was present with Dr. Jordan during the history and exam. I discussed the case with the resident and agree with the findings and plan as documented in the note. Any exceptions or clarifications are listed here: Doing well. Ready for d/c. Will pump and then bottle feed. She is aware of her instructions and has already called to make pp check. Documented By: Arabella Barros MD, FACOG Resident Activity Tracking <Domingo Jordan MD - Last Filed: 10/10/18 06:18> Resident Involvement: Resident Care Provided Care Provided: Adult Hospital Medicine
[2018-10-10] MEDS: IBUPROFEN 600 MG TAB PO PRN (08:11)
[2018-10-10] MEDS: PRENATAL VITAMIN 1 TAB PO SCH (09:15)
[2018-10-10] MEDS: DOCUSATE SODIUM 100 MG CAP PO SCH (09:15)
== END 2018-10-10 13:35 | disposition home or self-care (01) | DRG 768 ==
LOC: 4S1 07:25 → 4S2 23:35